=== PATIENT | female | born 1960 | race Caucasian/White ===

== ENCOUNTER 2024-06-01 09:30 | Outpatient (RCR) | payer BC, SELFPAY | END 2024-06-01 23:59 | disposition home or self-care (01) | LOC: RST 09:30 | PROVIDERS: ATTENDING PHYSICIAN Psychiatry & Neurology Neurology | DX: G23.1 Progressive supranuclear ophthalmoplegia [Steele-Richardson-Olszewski] (principal); R13.12 Dysphagia, oropharyngeal phase; R47.1 Dysarthria and anarthria; R49.8 Other voice and resonance disorders | CPT/HCPCS: 92507; 92522; 92526; 92610 ==

== ENCOUNTER 2024-06-22 10:25 | Outpatient (RCR) | payer BC, SELFPAY | END 2024-06-22 13:12 | disposition home or self-care (01) | LOC: RST 10:25 | PROVIDERS: ATTENDING PHYSICIAN Psychiatry & Neurology Neurology | DX: G23.1 Progressive supranuclear ophthalmoplegia [Steele-Richardson-Olszewski] (principal); R13.12 Dysphagia, oropharyngeal phase; R47.1 Dysarthria and anarthria; R49.8 Other voice and resonance disorders | CPT/HCPCS: 92507; 92526 ==

== ENCOUNTER → 2024-10-18 19:00 | Outpatient (REF) | payer BC, SELFPAY ==
[2024-10-19 15:13] LABS: Urine Character Cloudy (Clear)
== END ==
LOC: OLABPATH 19:00
PROVIDERS: ATTENDING PHYSICIAN Internal Medicine
DX: I10 Essential (primary) hypertension (principal); G23.1 Progressive supranuclear ophthalmoplegia [Steele-Richardson-Olszewski]; F32.A Depression, unspecified
CPT/HCPCS: 81003

== ENCOUNTER → 2025-04-07 10:00 | Outpatient (REF) | payer BC, SELFPAY ==
[2025-04-07 11:16] LABS: Hematocrit 39.3 % (37.0-47.0); Hemoglobin 13.1 g/dL (12.0-16.0); Mean Corp Hgb Conc. 33.3 g/dL (33.0-37.0); Mean Corpuscular Volume 83.1 fL (81.0-99.0); Nucleated Red Blood Cells % 0 %; Platelet Count 223 10^3/uL (130-400); Red Cell Dist. Width 13.5 % (11.5-14.5)
[2025-04-07 11:58] LABS: ALT (SGPT) 40 U/L (0-35); AST (SGOT) 35 U/L (14-36); Albumin 4.0 g/dl (3.5-5.0); Alkaline Phosphatase 81 U/L (38-126); Blood Urea Nitrogen 12 mg/dl (7-17); Calcium 8.9 mg/dl (8.4-10.2); Carbon Dioxide 30 mmol/L (22-30); Chloride 100 mmol/L (98-107); Glucose 91 mg/dl (70-99); Potassium 4.1 mmol/L (3.5-5.1); Sodium 136 mmol/L (135-145); Total Protein 6.2 g/dl (6.3-8.2); eGFR > 60.00
[2025-04-07 12:16] LABS: TSH 0.63 uIU/ml (0.47-4.68)
== END ==
LOC: OLABPATH 10:00
PROVIDERS: ATTENDING PHYSICIAN Internal Medicine
DX: G47.33 Obstructive sleep apnea (adult) (pediatric) (principal); G23.1 Progressive supranuclear ophthalmoplegia [Steele-Richardson-Olszewski]; E50.9 Vitamin A deficiency, unspecified
CPT/HCPCS: 36415; 80053; 84443; 85025